=== PATIENT | female | born 1965 | race Caucasian/White ===

== ENCOUNTER 2019-06-29 05:54 | Emergency (ER) | payer OTHER ==
[2019-06-29 06:09] VITALS: TEMP 97.6; BMI 36.8
[2019-06-29 07:07] VITALS: BP 132/79; PULSE 63
--- NOTE | 2019-06-29 07:17 | PDOC ---
History of Present Illness - General Chief Complaint: Blood Sugar Problem Stated Complaint: HIGH BLOOD SUGAR Past History - Past Medical History Allergies/Adverse Reactions: Allergies Allergy/AdvReac Type Severity Reaction Status Date / Time aspirin Allergy Verified 06/29/19 06:01 Cephalosporins Allergy Verified 06/29/19 06:01 Quinolones Allergy Verified 06/29/19 06:01 Home Medications: Ambulatory Orders Atorvastatin Ca [Lipitor -] 1 tab PO HS 02/06/15 Clopidogrel Bisulfate [Plavix -] 75 mg PO DAILY 02/06/15 Hydrochlorothiazide [Hctz -] 25 mg PO DAILY 02/06/15 Losartan Potassium 1 tab PO DAILY 02/06/15 Metoprolol Succinate [Toprol Xl] 100 mg PO DAILY 02/06/15 Sitagliptin Phosphate [Januvia] 100 mg PO DAILY 02/06/15 metFORMIN HCL [Glucophage] 1,000 mg PO BID 02/06/15 COPD: No Diabetes: Yes HTN: Yes - Immunization History Immunization Up to Date: Yes - Psycho Social/Smoking Cessation Hx Smoking Status: No Smoking History: Unknown if ever smoked Have you smoked in the past 12 months: No Number of Cigarettes Smoked Daily: 0 Information on smoking cessation initiated: No Hx Alcohol Use: No Drug/Substance Use Hx: No Substance Use Type: None *Physical Exam - Vital Signs Last Vital Signs Temp Pulse Resp BP Pulse Ox 97.6 F 63 20 132/79 100 06/29/19 06:01 06/29/19 07:06 06/29/19 06:01 06/29/19 07:06 06/29/19 07:06 ED Treatment Course - ADDITIONAL ORDERS Additional order review: Laboratory Results 06/29/19 06:04 POC Glucometer 141 06/29/19 06:04 POC Glucometer 141 Discharge - Follow up/Referral Referrals: Dhruv Herndon MD [Primary Care Provider] - - Patient Discharge Instructions - Post Discharge Activity
[2019-06-29] MEDS ORDERED: SODIUM CHLORIDE 1,000 ML IV STA (07:19)
[2019-06-29] MEDS ORDERED: ACETAMINOPHEN 500 MG TABLET (FP) PO ONE (07:20)
--- NOTE | 2019-06-29 07:21 | PDOC ---
History of Present Illness - General Chief Complaint: Blood Sugar Problem Stated Complaint: HIGH BLOOD SUGAR Time Seen by Provider: 06/29/19 07:17 - History of Present Illness Initial Comments: 06/29/19 07:21 Ms. Villa is a 54 yo female w/ pmh of HTN, HLD, DM who presents for evaluation of elevated bgm at home. Patient reports it was over 800 at home however bgm at triage was 141. Patient reports a mild headache this morning as well. Patient concerned as she started trulicity on Sunday and has been noticing fluctuating sugars associated with skipping meals. Patient denies other complaints at this time. The patient denies chest pain, shortness of breath, and dizziness. Denies fever , chills, nausea, vomit, diarrhea and constipation. Denies dysuria, frequency, urgency and hematuria. Past History - Past Medical History Allergies/Adverse Reactions: Allergies Allergy/AdvReac Type Severity Reaction Status Date / Time aspirin Allergy Verified 06/29/19 06:01 Cephalosporins Allergy Verified 06/29/19 06:01 Quinolones Allergy Verified 06/29/19 06:01 Home Medications: Ambulatory Orders Atorvastatin Ca [Lipitor -] 1 tab PO HS 02/06/15 Clopidogrel Bisulfate [Plavix -] 75 mg PO DAILY 02/06/15 Hydrochlorothiazide [Hctz -] 25 mg PO DAILY 02/06/15 Losartan Potassium 1 tab PO DAILY 02/06/15 Metoprolol Succinate [Toprol Xl] 100 mg PO DAILY 02/06/15 Sitagliptin Phosphate [Januvia] 100 mg PO DAILY 02/06/15 metFORMIN HCL [Glucophage] 1,000 mg PO BID 02/06/15 Ondansetron [Zofran *Odt*] 4 mg SL TID PRN #9 od.tablet 06/29/19 COPD: No Diabetes: Yes HTN: Yes - Immunization History Immunization Up to Date: Yes - Psycho Social/Smoking Cessation Hx Smoking Status: No Smoking History: Unknown if ever smoked Have you smoked in the past 12 months: No Number of Cigarettes Smoked Daily: 0 Information on smoking cessation initiated: No Hx Alcohol Use: No Drug/Substance Use Hx: No Substance Use Type: None Review of Systems - Review of Systems Comments:: 06/29/19 07:34 GENERAL/CONSTITUTIONAL: No fever or chills. No weakness. HEAD, EYES, EARS, NOSE AND THROAT: No change in vision. No ear pain or discharge. No sore throat. CARDIOVASCULAR: No chest pain or shortness of breath RESPIRATORY: No cough, wheezing, or hemoptysis. GASTROINTESTINAL: No nausea, vomiting, diarrhea or constipation. GENITOURINARY: No dysuria, frequency, or change in urination. MUSCULOSKELETAL: No joint or muscle swelling or pain. No neck or back pain. SKIN: No rash NEUROLOGIC: +Headache as described. No vertigo, loss of consciousness, or change in strength/sensation. ENDOCRINE: No increased thirst. No abnormal weight change HEMATOLOGIC/LYMPHATIC: No anemia, easy bleeding, or history of blood clots. ALLERGIC/IMMUNOLOGIC: No hives or skin allergy. *Physical Exam - Vital Signs Last Vital Signs Temp Pulse Resp BP Pulse Ox 97.6 F 63 20 132/79 100 06/29/19 06:01 06/29/19 07:06 06/29/19 06:01 06/29/19 07:06 06/29/19 07:06 - Physical Exam Comments: 06/29/19 07:34 GENERAL: Awake, alert, and fully oriented, in no acute distress HEAD: No signs of trauma, normocephalic, atraumatic EYES: PERRLA, EOMI, sclera anicteric, conjunctiva clear ENT: Auricles normal inspection, hearing grossly normal, nares patent, oropharynx clear without exudates. Moist mucosa NECK: Normal ROM, supple, no lymphadenopathy, JVD, or masses LUNGS: No distress, speaks full sentences, clear to auscultation bilaterally HEART: Regular rate and rhythm, normal S1 and S2, no murmurs, rubs or gallops, peripheral pulses normal and equal bilaterally. ABDOMEN: Soft, nontender, normoactive bowel sounds. No guarding, no rebound. No masses EXTREMITIES: Normal inspection, Normal range of motion, no edema. No clubbing or cyanosis. NEUROLOGICAL: Cranial nerves II through XII grossly intact. Normal speech, normal gait, no focal sensorimotor deficits SKIN: Warm, Dry, normal turgor, no rashes or lesions noted. ED Treatment Course - LABORATORY CBC & Chemistry Diagram: 06/29/19 07:00 06/29/19 07:00 - ADDITIONAL ORDERS Additional order review: Laboratory Results 06/29/19 06:04 POC Glucometer 141 06/29/19 06:04 POC Glucometer 141 Medical Decision Making - Medical Decision Making 06/29/19 08:35 Ms. Villa is a 54 yo female w/ pmh as described who presents for evaluation of noted hyperglycemia at home w/ normal BGM upon arrival. Patient evaluated w/ basic labs as below and given oral tylenol /zofran for headache symptoms. Patient well appearing and will f/u w/ PCP tomorrow for further evaluation. No concerning for acute process at this time. Discharging to home. Laboratory Results - last 24 hr 06/29/19 06/29/19 06/29/19 06:04 07:00 07:00 WBC 12.1 H RBC 4.65 Hgb 14.2 Hct 42.8 MCV 92.1 MCH 30.6 MCHC 33.2 RDW 13.5 Plt Count 346 MPV 7.7 Absolute Neuts (auto) 8.8 H Neutrophils % 72.6 Lymphocytes % 19.9 D Monocytes % 5.1 Eosinophils % 2.0 Basophils % 0.4 Nucleated RBC % 0 Sodium 142 Potassium 4.3 Chloride 107 Carbon Dioxide 26 Anion Gap 9 BUN 8.1 Creatinine 0.6 Est GFR (CKD-EPI)AfAm 118.93 Est GFR (CKD-EPI)NonAf 102.61 POC Glucometer 141 Random Glucose 150 H Calcium 9.8 Total Bilirubin 0.4 AST 20 ALT 36 Alkaline Phosphatase 78 Total Protein 7.3 Albumin 3.9 Discharge - Discharge Information Problems reviewed: Yes Clinical Impression/Diagnosis: Headache Qualifiers: Headache type: unspecified Headache chronicity pattern: unspecified pattern Intractability: not intractable Qualified Code(s): R51 - Headache Disposition: HOME - Additional Discharge Information Prescriptions: Ondansetron [Zofran *Odt*] 4 mg SL TID PRN #9 od.tablet PRN Reason: Nausea - Follow up/Referral Referrals: Dhruv Herndon MD [Primary Care Provider] - - Patient Discharge Instructions Patient Printed Discharge Instructions: DI for Hyperglycemia -- Adult Additional Instructions: You were evaluated today in the ER for your home blood glucose measurements. Your values were normal in the ER and we treated your headache with oral tylenol. We also sent a prescription to your pharmacy for anti-nausea medication. Take all medications as proscribed. Please follow-up with primary care provider tomorrow as discussed. Return to ER if any fever, chills, pain, or other concerning symptoms. - Post Discharge Activity
[2019-06-29] MEDS ORDERED: ONDANSETRON *ODT* 4 MG TABLET SL ONE (07:39)
[2019-06-29 08:12] LABS: BASO % 0.4 % (0-2.0); HEMATOCRIT 42.8 % (32.4-45.2); HEMOGLOBIN 14.2 GM/dL (10.7-15.3); LYMPH % 19.9 % (8-40); MCH 30.6 pg (25.7-33.7); MCHC 33.2 g/dl (32.0-36.0); MEAN CELL VOLUME 92.1 fl (80-96); MEAN PLT VOLUME 7.7 fl (7.5-11.1); MONO % 5.1 % (3.8-10.2); NEUT % 72.6 % (42.8-82.8); PLATELET COUNT 346 K/MM3 (134-434); RBC 4.65 M/mm3 (3.60-5.2); RDW 13.5 % (11.6-15.6); WHITE BLOOD COUNT 12.1 K/mm3 (4.0-10.0)
[2019-06-29 08:16] LABS: ALBUMIN 3.9 g/dl (3.4-5.0); BILIRUBIN,TOTAL 0.4 mg/dL (0.2-1); BLOOD UREA NITROGEN 8.1 mg/dL (7-18); CALCIUM 9.8 mg/dL (8.5-10.1); CREATININE 0.6 mg/dL (0.55-1.3); POTASSIUM 4.3 mmol/L (3.5-5.1); TOT PROT 7.3 g/dl (6.4-8.2)
--- NOTE | 2019-06-29 08:30 | PDOC ---
Attending Attestation - Resident Resident Name: SilvestreyasminAleksandr amato - ED Attending Attestation I have performed the following: I have examined & evaluated the patient, The case was reviewed & discussed with the resident, I agree w/resident's findings & plan - HPI HPI: 06/29/19 08:22 54 year old female, with a significant past medical history of hypertension, diabetes, history of back pain and high cholesterol, presenting with concerns of hyperglycemia. On trulicity, started 1 week ago - previously on metformin. Has been continuing with metformin bid. Also feeling nauseous since starting the new drug. also has intermittent periods of eating, last night had large amount of pasta, but also goes through periods of not eating. during the past week, sugars hve been fluctuating, can be low into 80s, or up to 800s like last night. pmd Dr tavares 06/29/19 08:24 06/29/19 08:27 - Physicial Exam PE: 06/29/19 08:22 Agree with the resident's HPI and PE as documented in the electronic medical record. NAD, well appearing, EOMI, PERRL, nl conjunctiva, anicteric; neck supple. lungs clear, RRR, abdomen soft nontender. no rebound, guarding. Back nontender. MONTIEL x4, no focal neuro deficits. No peripheral edema. normal color for ethnicity , WWP. - Medical Decision Making 06/29/19 08:23 Vital Signs Temp Pulse Resp BP Pulse Ox 97.6 F 63 20 132/79 100 06/29/19 06:01 06/29/19 07:06 06/29/19 06:01 06/29/19 07:06 06/29/19 07:06 vitals reviewed, wnl. Blood sugar here 141 Labs and lytes here wnl glucose remains normal doubt dka. no systemic findings. no s/s infection. [place] PO given analgesia for headache. nausea treated with reglan given PO challenge, fluids and will rx. zofran c/w regimen, call [facility] for endo and pmd Pt to be discharged in stable condition. Patient made aware of clinical impression, treatment recommendations and disposition plan, return precautions discussed (including but not limited to new or persistent/worsening symptoms, pain, fevers, or signs of infection, chest pain, respiratory distress, inability to tolerate oral intake, dehydration, syncope, or neurologic changes) . Follow up with PMD and/or specialists as recommended, follow up information provided, take medications as instructed for duration of time. continue with supportive care, avoid triggers and precipitants. All questions answered to patient's satisfaction and expressed understanding and comfort with this. At the time of discharge, the patient is alert, clinically improved, tolerating po and verbalizes understanding of instructions, satisfied with the care received and felt comfortable with the plan. Patient does not suffer from an acute life- threatening medical condition at this time and is safe for outpatient follow- up. 06/29/19 08:25 06/29/19 08:27
== END 2019-06-29 09:02 | disposition home or self-care (01) ==
LOC: JER 05:54
DX: R51 Headache (principal); E11.65 Type 2 diabetes mellitus with hyperglycemia; Z79.84 Long term (current) use of oral hypoglycemic drugs; I10 Essential (primary) hypertension; E78.5 Hyperlipidemia, unspecified; Z88.1 Allergy status to other antibiotic agents; Z88.6 Allergy status to analgesic agent; Z88.8 Allergy status to other drugs, medicaments and biological substances
CPT/HCPCS: 36415; 80053; 82962; 85025; 99282-25; Q0162

== ENCOUNTER 2021-04-03 12:14 | Emergency (ER) | payer OTHER ==
[2021-04-03 12:20] VITALS: TEMP 98; BMI 36.8
[2021-04-03] MEDS ORDERED: ONDANSETRON *ODT* 4 MG TABLET SL ONE (13:39)
[2021-04-03] MEDS ORDERED: METOCLOPRAMIDE HCL 10 MG TABLET (FP) PO ONE ×2 (13:48→14:01)
[2021-04-03] MEDS ORDERED: diphenhydrAMINE HCL 25 MG CAPSULE (FP) PO ONE ×2 (13:48→14:01)
[2021-04-03] MEDS ORDERED: FAMOTIDINE 10 MG TABLET PO ONE (13:48)
[2021-04-03] MEDS ORDERED: ONDANSETRON *ODT* 4 MG TABLET ONE (14:01)
[2021-04-03] MEDS ORDERED: FAMOTIDINE 10 MG TABLET ONE (14:01)
[2021-04-03 15:22] VITALS: BP 119/69; PULSE 74
== END 2021-04-03 16:02 | disposition left against medical advice (07) ==
LOC: JER 12:14
DX: R11.0 Nausea (principal)
CPT/HCPCS: 82962; 93005; 93010; 99284-25; Q0162

== ENCOUNTER 2022-01-27 06:03 | Day surgery (SDC) | payer OTHER ==
[2022-01-24 12:35] VITALS: BMI 37.8
[2022-01-27] MEDS ORDERED: BUPIVACAINE HCL/PF 2.5 MG/ML - 30 ML VIAL IJ ONE (07:03)
[2022-01-27] MEDS ORDERED: EPINEPHrine 1:1,000 1,000 MCG/ML ML ONE (07:04)
[2022-01-27] MEDS ORDERED: MIDAZOLAM HCL 2 MG/2 ML SINGLE DOSE VIAL ONE ×2 (07:37)
[2022-01-27] MEDS ORDERED: PROPOFOL 20 ML ONE (07:37)
[2022-01-27] MEDS ORDERED: SUCCINYLCHOLINE CHLORIDE 200 MG/10 ML SYRINGE ONE (07:38)
[2022-01-27] MEDS ORDERED: PROMETHAZINE HCL 25 MG/1 ML VIAL IVPUSH PRN (08:41)
[2022-01-27] MEDS ORDERED: oxyCODONE HCL 5 MG TABLET PO PRN (08:41)
[2022-01-27] MEDS ORDERED: ONDANSETRON 4 MG/2 ML VIAL IVPUSH PRN (08:41)
[2022-01-27] MEDS ORDERED: LACTATED RINGERS SOLUTION 1,000 ML IV SCH (08:45)
[2022-01-27] MEDS ORDERED: FENTANYL CITRATE/PF 50 MCG/ML VIAL ONE ×4 (08:52→09:37)
[2022-01-27 10:08] VITALS: TEMP 96.7
[2022-01-27 11:34] VITALS: BP 118/58; PULSE 87
== END 2022-01-27 12:15 | disposition home or self-care (01) ==
LOC: FASU 06:03
PROVIDERS: ATTEND Orthopaedic Surgery
PROC: 0SBC4ZZ Excision of Right Knee Joint, Percutaneous Endoscopic Approach (ICD-10-PCS; 2022-01-27)
PROC: 0SBC4ZZ Excision of Right Knee Joint, Percutaneous Endoscopic Approach (ICD-10-PCS; 2022-01-27)
PROC: 0MNN4ZZ Release Right Knee Bursa and Ligament, Percutaneous Endoscopic Approach (ICD-10-PCS; 2022-01-27)
PROC: 0SBC4ZZ Excision of Right Knee Joint, Percutaneous Endoscopic Approach (ICD-10-PCS; principal; 2022-01-27 08:08)
DX: S83.241A Other tear of medial meniscus, current injury, right knee, initial encounter (principal); S83.281A Other tear of lateral meniscus, current injury, right knee, initial encounter; S83.8X1A Sprain of other specified parts of right knee, initial encounter; M65.861 Other synovitis and tenosynovitis, right lower leg; S83.011A Lateral subluxation of right patella, initial encounter; X58.XXXA Exposure to other specified factors, initial encounter; Y93.9 Activity, unspecified; Y92.9 Unspecified place or not applicable
CPT/HCPCS: 82962; 94760